=== PATIENT | male | born 1935 | race Caucasian/White ===

== ENCOUNTER 2021-08-27 15:12 | Inpatient (IN) | payer OTHER, BC ==
[2021-08-27 15:25] VITALS: BMI 20.3
[2021-08-27] MEDS ORDERED: VANCOMYCIN 1 GM in D5W (PRE-DOCKED) 1,000 MG/250 ML IVPB ONE (16:43)
[2021-08-27] MEDS ORDERED: PIPERACILLIN/TAZOB 4.5 GM 4.5 GM in DEXTROSE 5%-WATER 100 ML IVPB ONE (16:43)
[2021-08-27] MEDS ORDERED: morphine CARPU-JECT 4 MG/1 ML DISP.SYRIN IVPUSH ONE (16:44)
[2021-08-27] MEDS ORDERED: PIPERACILLIN/TAZOB 4.5 GM 4.5 GM/100 ML BAG IVPB ONE (17:00)
[2021-08-27] MEDS ORDERED: morphine SULFATE 4 MG/ML VIAL ONE (17:00)
[2021-08-27] MEDS ORDERED: VANCOMYCIN 1 GRAM (PRE-DOCKED) 1,000 MG/250 ML BAG IVPB ONE (17:01)
[2021-08-27 17:33] LABS: BASO % 0.2 % (0-2.0); EOS % 0.2 % (0-4.5); HEMATOCRIT 38.3 % (35.4-49); HEMOGLOBIN 12.7 GM/dL (11.7-16.9); LYMPH % 4.5 % (8-40); MCHC 33.2 g/dl (32.0-35.9); MEAN CELL VOLUME 96.2 fl (80-96); MEAN PLT VOLUME 9.4 fl (7.5-11.1); MONO % 6.7 % (3.8-10.2); NEUT % 88.4 % (42.8-82.8); PLATELET COUNT 223 10^3/uL (134-434); RBC 3.98 M/mm3 (4.00-5.60); RDW 12.5 % (11.9-15.9); WHITE BLOOD COUNT 11.6 K/mm3 (4.0-10.0)
[2021-08-27 17:36] LABS: INR 1.26 (0.83-1.09); PROTHROMBIN TIME (PATIENT) 14.8 SEC (9.7-13.0)
[2021-08-27 17:39] LABS: ACTIVATED PTT 24.4 SECONDS (25.2-36.5)
[2021-08-27 17:50] LABS: CALCIUM 8.9 mg/dL (8.5-10.1)
[2021-08-27 17:51] LABS: ALBUMIN 2.5 g/dl (3.4-5.0); BLOOD UREA NITROGEN 69.6 mg/dL (7-18)
[2021-08-27 17:54] LABS: CREATININE 3.1 mg/dL (0.55-1.3)
[2021-08-27 17:55] LABS: BILIRUBIN,TOTAL 1.2 mg/dL (0.2-1); TOT PROT 6.9 g/dl (6.4-8.2)
[2021-08-27] MEDS ORDERED: VANCOMYCIN 1,000 MG VIAL (RESTRICTED TO ID ONLY) ONE (18:44)
[2021-08-27] MEDS ORDERED: ONDANSETRON 4 MG/2 ML VIAL IVPUSH PRN ×2 (19:18→21:09)
[2021-08-27] MEDS ORDERED: SODIUM CHLORIDE 1,000 ML IV SCH (19:30)
[2021-08-27] MEDS ORDERED: MIDAZOLAM HCL 2 MG/2 ML SINGLE DOSE VIAL ONE (19:45)
[2021-08-27] MEDS ORDERED: PROPOFOL 20 ML ONE ×2 (19:46)
[2021-08-27] MEDS ORDERED: ONDANSETRON 4 MG/2 ML VIAL ONE (19:46)
[2021-08-27] MEDS ORDERED: LIDOCAINE HCL 2% (20ML MULTI-DOSE VIAL) ONE (19:58)
[2021-08-27] MEDS ORDERED: BUPIVACAINE HCL/PF 0.5% (5MG/ML) 10 ML VIAL ONE (20:46)
[2021-08-27] MEDS: Insulin (LOG) Aspart 100 UNITS/ML VIAL SQ ONE (21:30)
[2021-08-27] MEDS: INSULIN SLIDING SCALE (NOVOLOG) 1 VIAL SQ SCH (21:30)
[2021-08-28] MEDS: ACETAMINOPHEN 1000 MG/100 ML VIAL IVPB PRN ×2 (01:23→08:47)
[2021-08-28] MEDS: SODIUM CHLORIDE 1,000 ML IV SCH ×2 (01:29→05:14)
[2021-08-28] MEDS: INSULIN SLIDING SCALE (NOVOLOG) 1 VIAL SQ SCH ×4 (06:39→22:35)
[2021-08-28] MEDS ORDERED: DEXTROSE 5%-WATER - 50 ML IVPB ONE ×3 (07:49→16:50)
[2021-08-28] MEDS ORDERED: PIPERACILLIN/TAZOBACTAM 2.25 GM VIAL IVPB ONE ×3 (07:49→16:50)
[2021-08-28 08:26] LABS: BASO % 0.4 % (0-2.0); EOS % 1.7 % (0-4.5); HEMATOCRIT 35.2 % (35.4-49); LYMPH % 11.3 % (8-40); MCH 33.2 pg (25.7-33.7); MEAN CELL VOLUME 97.6 fl (80-96); MEAN PLT VOLUME 9.3 fl (7.5-11.1); MONO % 8.5 % (3.8-10.2); NEUT % 78.1 % (42.8-82.8); PLATELET COUNT 209 10^3/uL (134-434); RDW 12.7 % (11.9-15.9); WHITE BLOOD COUNT 7.9 K/mm3 (4.0-10.0)
[2021-08-28 08:46] LABS: CALCIUM 8.2 mg/dL (8.5-10.1); MAGNESIUM 2.3 mg/dL (1.8-2.4)
[2021-08-28] MEDS: PIPERACILLIN/TAZOB 2.25 GM 2.25 GM in DEXTROSE 5%-WATER - 50 ML IVPB SCH ×3 (08:47→17:08)
[2021-08-28 08:49] LABS: CREATININE 2.8 mg/dL (0.55-1.3); PHOSPHOROUS 4.1 mg/dL (2.5-4.9)
[2021-08-28 08:50] LABS: BILIRUBIN,TOTAL 1.2 mg/dL (0.2-1)
[2021-08-28 08:51] LABS: TOT PROT 5.9 g/dl (6.4-8.2)
[2021-08-28] MEDS: ASPIRIN 81 MG CHEWABLE TABLETS PO SCH (09:09)
[2021-08-28] MEDS: metoPROLOL SUCCINATE 25 MG TAB.SR.24H (FP) PO SCH (09:09)
[2021-08-28] MEDS ORDERED: INSULIN (NOVOLOG) ASPART 100 UNITS/ML 10ML VIAL ONE (10:46)
[2021-08-28] MEDS: oxyCODONE HCL 5 MG TABLET PO PRN ×2 (11:41→17:49)
[2021-08-28] MEDS: Insulin (LOG) Aspart 100 UNITS/ML VIAL SQ ONE (23:25)
[2021-08-29] MEDS ORDERED: PIPERACILLIN/TAZOBACTAM 2.25 GM VIAL IVPB ONE ×4 (00:46→21:01)
[2021-08-29] MEDS ORDERED: DEXTROSE 5%-WATER - 50 ML IVPB ONE ×4 (00:47→21:01)
[2021-08-29] MEDS: oxyCODONE HCL 5 MG TABLET PO PRN ×3 (00:51→15:56)
[2021-08-29] MEDS: SODIUM CHLORIDE 1,000 ML IV SCH ×3 (00:57→15:57)
[2021-08-29] MEDS: PIPERACILLIN/TAZOB 2.25 GM 2.25 GM in DEXTROSE 5%-WATER - 50 ML IVPB SCH ×4 (01:00→21:42)
[2021-08-29] MEDS: INSULIN SLIDING SCALE (NOVOLOG) 1 VIAL SQ SCH ×4 (06:08→21:42)
[2021-08-29 08:48] LABS: HEMATOCRIT 31.6 % (35.4-49); HEMOGLOBIN 10.8 GM/dL (11.7-16.9); MCH 33.6 pg (25.7-33.7); MCHC 34.3 g/dl (32.0-35.9); MEAN CELL VOLUME 97.9 fl (80-96); MEAN PLT VOLUME 9.2 fl (7.5-11.1); PLATELET COUNT 197 10^3/uL (134-434); RBC 3.23 M/mm3 (4.00-5.60); RDW 12.7 % (11.9-15.9); WHITE BLOOD COUNT 8.5 K/mm3 (4.0-10.0)
[2021-08-29] MEDS: ASPIRIN 81 MG CHEWABLE TABLETS PO SCH (09:13)
[2021-08-29] MEDS: metoPROLOL SUCCINATE 25 MG TAB.SR.24H (FP) PO SCH (09:13)
[2021-08-29 09:29] LABS: ALBUMIN 1.8 g/dl (3.4-5.0); BLOOD UREA NITROGEN 47.5 mg/dL (7-18); CALCIUM 8.1 mg/dL (8.5-10.1)
[2021-08-29 09:32] LABS: CREATININE 2.6 mg/dL (0.55-1.3); URIC ACID 3.2 mg/dL (2.6-7.2)
[2021-08-29 09:33] LABS: BILIRUBIN,TOTAL 1.2 mg/dL (0.2-1)
[2021-08-29 09:34] LABS: TOT PROT 5.4 g/dl (6.4-8.2)
[2021-08-29] MEDS: ENOXAPARIN NA (PORCINE) 30 MG/0.3 ML DISP.SYRIN SQ SCH (15:58)
[2021-08-30] MEDS ORDERED: DEXTROSE 5%-WATER - 50 ML IVPB ONE ×4 (02:44→21:21)
[2021-08-30] MEDS ORDERED: PIPERACILLIN/TAZOBACTAM 2.25 GM VIAL IVPB ONE ×4 (02:44→21:21)
[2021-08-30] MEDS: PIPERACILLIN/TAZOB 2.25 GM 2.25 GM in DEXTROSE 5%-WATER - 50 ML IVPB SCH ×4 (03:24→22:08)
[2021-08-30] MEDS: SODIUM CHLORIDE 1,000 ML IV SCH ×2 (03:24→15:00)
[2021-08-30] MEDS: oxyCODONE HCL 5 MG TABLET PO PRN ×3 (04:32→18:32)
[2021-08-30] MEDS: INSULIN SLIDING SCALE (NOVOLOG) 1 VIAL SQ SCH ×4 (06:00→22:12)
[2021-08-30 08:59] LABS: BASO % 0.8 % (0-2.0); EOS % 1.9 % (0-4.5); HEMATOCRIT 31.1 % (35.4-49); HEMOGLOBIN 10.6 GM/dL (11.7-16.9); LYMPH % 10.9 % (8-40); MCH 32.9 pg (25.7-33.7); MEAN CELL VOLUME 96.8 fl (80-96); MONO % 11.7 % (3.8-10.2); NEUT % 74.7 % (42.8-82.8); PLATELET COUNT 199 10^3/uL (134-434); RBC 3.21 M/mm3 (4.00-5.60); RDW 12.4 % (11.9-15.9); WHITE BLOOD COUNT 7.4 K/mm3 (4.0-10.0)
[2021-08-30 09:28] LABS: CALCIUM 7.8 mg/dL (8.5-10.1)
[2021-08-30 09:29] LABS: ALBUMIN 1.6 g/dl (3.4-5.0); BLOOD UREA NITROGEN 38.5 mg/dL (7-18)
[2021-08-30 09:32] LABS: CREATININE 2.5 mg/dL (0.55-1.3)
[2021-08-30 09:33] LABS: BILIRUBIN,TOTAL 0.8 mg/dL (0.2-1); TOT PROT 5.1 g/dl (6.4-8.2)
[2021-08-30] MEDS: metoPROLOL SUCCINATE 25 MG TAB.SR.24H (FP) PO SCH (09:33)
[2021-08-30] MEDS: ENOXAPARIN NA (PORCINE) 30 MG/0.3 ML DISP.SYRIN SQ SCH (09:33)
[2021-08-30] MEDS: ASPIRIN 81 MG CHEWABLE TABLETS PO SCH (09:33)
[2021-08-30] MEDS: INSULIN (LEVEMIR) 100 UNITS/ML UNITS SQ SCH (22:08)
[2021-08-31] MEDS ORDERED: DEXTROSE 5%-WATER - 50 ML IVPB ONE ×4 (01:48→20:46)
[2021-08-31] MEDS ORDERED: PIPERACILLIN/TAZOBACTAM 2.25 GM VIAL IVPB ONE ×4 (01:48→20:46)
[2021-08-31] MEDS: oxyCODONE HCL 5 MG TABLET PO PRN ×3 (02:33→17:32)
[2021-08-31] MEDS: PIPERACILLIN/TAZOB 2.25 GM 2.25 GM in DEXTROSE 5%-WATER - 50 ML IVPB SCH ×4 (02:34→21:58)
[2021-08-31] MEDS: SODIUM CHLORIDE 1,000 ML IV SCH ×2 (04:35→17:40)
[2021-08-31] MEDS: INSULIN SLIDING SCALE (NOVOLOG) 1 VIAL SQ SCH ×4 (06:18→21:55)
[2021-08-31 08:25] LABS: BASO % 0.7 % (0-2.0); HEMATOCRIT 29.7 % (35.4-49); HEMOGLOBIN 10.2 GM/dL (11.7-16.9); LYMPH % 11.3 % (8-40); MCH 32.8 pg (25.7-33.7); MCHC 34.4 g/dl (32.0-35.9); MEAN CELL VOLUME 95.4 fl (80-96); MEAN PLT VOLUME 8.4 fl (7.5-11.1); MONO % 11.3 % (3.8-10.2); NEUT % 73.7 % (42.8-82.8); PLATELET COUNT 200 10^3/uL (134-434); RBC 3.12 M/mm3 (4.00-5.60); RDW 12.2 % (11.9-15.9); WHITE BLOOD COUNT 7.7 K/mm3 (4.0-10.0)
[2021-08-31 09:20] LABS: ALBUMIN 1.6 g/dl (3.4-5.0); CALCIUM 7.9 mg/dL (8.5-10.1)
[2021-08-31 09:23] LABS: CREATININE 2.2 mg/dL (0.55-1.3)
[2021-08-31 09:25] LABS: BILIRUBIN,TOTAL 0.8 mg/dL (0.2-1); TOT PROT 5.1 g/dl (6.4-8.2)
[2021-08-31] MEDS: metoPROLOL SUCCINATE 25 MG TAB.SR.24H (FP) PO SCH (10:20)
[2021-08-31] MEDS: ENOXAPARIN NA (PORCINE) 30 MG/0.3 ML DISP.SYRIN SQ SCH (10:21)
[2021-08-31] MEDS: ASPIRIN 81 MG CHEWABLE TABLETS PO SCH (10:21)
[2021-08-31] MEDS ORDERED: PT OWN MED DRAWER 7, Y5N ONE (17:18)
[2021-08-31] MEDS: INSULIN (LEVEMIR) 100 UNITS/ML UNITS SQ SCH (21:57)
[2021-09-01] MEDS ORDERED: PIPERACILLIN/TAZOBACTAM 2.25 GM VIAL IVPB ONE ×4 (03:09→19:59)
[2021-09-01] MEDS ORDERED: DEXTROSE 5%-WATER - 50 ML IVPB ONE ×4 (03:10→19:59)
[2021-09-01] MEDS: PIPERACILLIN/TAZOB 2.25 GM 2.25 GM in DEXTROSE 5%-WATER - 50 ML IVPB SCH ×4 (03:27→20:49)
[2021-09-01] MEDS: SODIUM CHLORIDE 1,000 ML IV SCH ×2 (05:40→15:57)
[2021-09-01] MEDS: INSULIN SLIDING SCALE (NOVOLOG) 1 VIAL SQ SCH ×4 (06:05→21:00)
[2021-09-01 08:18] LABS: BASO % 0.5 % (0-2.0); EOS % 1.2 % (0-4.5); HEMATOCRIT 30.6 % (35.4-49); HEMOGLOBIN 10.4 GM/dL (11.7-16.9); LYMPH % 9.6 % (8-40); MCH 32.4 pg (25.7-33.7); MEAN CELL VOLUME 95.4 fl (80-96); MEAN PLT VOLUME 8.6 fl (7.5-11.1); MONO % 10.8 % (3.8-10.2); NEUT % 77.9 % (42.8-82.8); PLATELET COUNT 236 10^3/uL (134-434); RBC 3.21 M/mm3 (4.00-5.60); RDW 12.6 % (11.9-15.9); WHITE BLOOD COUNT 8.7 K/mm3 (4.0-10.0)
[2021-09-01 08:44] LABS: CALCIUM 7.8 mg/dL (8.5-10.1)
[2021-09-01 08:45] LABS: ALBUMIN 1.7 g/dl (3.4-5.0); BLOOD UREA NITROGEN 23.2 mg/dL (7-18)
[2021-09-01 08:47] LABS: TOT PROT 5.1 g/dl (6.4-8.2)
[2021-09-01 08:51] LABS: BILIRUBIN,TOTAL 1.5 mg/dL (0.2-1)
[2021-09-01] MEDS: ENOXAPARIN NA (PORCINE) 30 MG/0.3 ML DISP.SYRIN SQ SCH (10:48)
[2021-09-01] MEDS: ASPIRIN 81 MG CHEWABLE TABLETS PO SCH (10:48)
[2021-09-01] MEDS: metoPROLOL SUCCINATE 25 MG TAB.SR.24H (FP) PO SCH (10:48)
[2021-09-01] MEDS: oxyCODONE HCL 5 MG TABLET PO PRN ×3 (11:29→23:46)
[2021-09-01] MEDS: INSULIN (LEVEMIR) 100 UNITS/ML UNITS SQ SCH (21:00)
[2021-09-01] MEDS ORDERED: ACETAMINOPHEN 1000 MG/100 ML VIAL IVPB ONE (21:54)
[2021-09-02] MEDS ORDERED: PIPERACILLIN/TAZOBACTAM 2.25 GM VIAL IVPB ONE ×2 (03:28→08:50)
[2021-09-02] MEDS ORDERED: DEXTROSE 5%-WATER - 50 ML IVPB ONE ×2 (03:29→08:50)
[2021-09-02] MEDS: PIPERACILLIN/TAZOB 2.25 GM 2.25 GM in DEXTROSE 5%-WATER - 50 ML IVPB SCH ×2 (03:30→09:25)
[2021-09-02] MEDS: oxyCODONE HCL 5 MG TABLET PO PRN ×3 (05:50→18:24)
[2021-09-02] MEDS: INSULIN SLIDING SCALE (NOVOLOG) 1 VIAL SQ SCH ×4 (06:07→21:59)
[2021-09-02] MEDS: ASPIRIN 81 MG CHEWABLE TABLETS PO SCH (09:25)
[2021-09-02] MEDS: metoPROLOL SUCCINATE 25 MG TAB.SR.24H (FP) PO SCH (09:25)
[2021-09-02] MEDS: ENOXAPARIN NA (PORCINE) 30 MG/0.3 ML DISP.SYRIN SQ SCH (09:25)
[2021-09-02] MEDS: LACTOBACILLUS ACIDOPHILUS 1 TABLET PO SCH (12:26)
[2021-09-02] MEDS: ERTAPENEM SODIUM 0.5 GM in SODIUM CHLORIDE 50 ML IVPB SCH (15:12)
[2021-09-02] MEDS: AMOXICILLIN 500 MG CAPSULE (FP) PO SCH (21:55)
[2021-09-02] MEDS: INSULIN (LEVEMIR) 100 UNITS/ML UNITS SQ SCH (21:59)
[2021-09-03] MEDS: oxyCODONE HCL 5 MG TABLET PO PRN ×3 (01:45→12:59)
[2021-09-03] MEDS: INSULIN SLIDING SCALE (NOVOLOG) 1 VIAL SQ SCH ×3 (06:53→16:58)
[2021-09-03] MEDS: ENOXAPARIN NA (PORCINE) 30 MG/0.3 ML DISP.SYRIN SQ SCH (09:51)
[2021-09-03] MEDS: metoPROLOL SUCCINATE 25 MG TAB.SR.24H (FP) PO SCH (09:52)
[2021-09-03] MEDS: LACTOBACILLUS ACIDOPHILUS 1 TABLET PO SCH (09:52)
[2021-09-03] MEDS: ASPIRIN 81 MG CHEWABLE TABLETS PO SCH (09:52)
[2021-09-03] MEDS: AMOXICILLIN 500 MG CAPSULE (FP) PO SCH (09:52)
[2021-09-03] MEDS: ERTAPENEM SODIUM 0.5 GM in SODIUM CHLORIDE 50 ML IVPB SCH (12:12)
[2021-09-03 14:08] VITALS: BP 135/70; PULSE 84; TEMP 97.6
[2021-09-04] MEDS ORDERED: AMINO ACIDS/PROTEIN HYDROLYS 30 ML LIQUID.PKT PO SCH (08:00)
[2021-09-04] MEDS ORDERED: MULTIVITAMINS (DAILY MVI) TABLET (FP) PO SCH (10:00)
== END 2021-09-03 18:39 | disposition home health service (06) | DRG 629 ==
LOC: JER 15:12 → JERBED 16:46 → J7W 08-28 00:59
PROVIDERS: ADMIT Family Medicine; ATTEND Family Medicine
PROC: 0J9Q0ZX Drainage of Right Foot Subcutaneous Tissue and Fascia, Open Approach, Diagnostic (ICD-10-PCS; 2021-08-27)
PROC: 0QBN3ZX Excision of Right Metatarsal, Percutaneous Approach, Diagnostic (ICD-10-PCS; principal; 2021-08-27 19:30)
PROC: 05HB33Z Insertion of Infusion Device into Right Basilic Vein, Percutaneous Approach (ICD-10-PCS; 2021-09-03)
PROC: B51MZZA Fluoroscopy of Right Upper Extremity Veins, Guidance (ICD-10-PCS; 2021-09-03)
DX: E11.621 Type 2 diabetes mellitus with foot ulcer (principal); L03.115 Cellulitis of right lower limb; M86.9 Osteomyelitis, unspecified; N17.9 Acute kidney failure, unspecified; L97.519 Non-pressure chronic ulcer of other part of right foot with unspecified severity; I25.10 Atherosclerotic heart disease of native coronary artery without angina pectoris; I12.9 Hypertensive chronic kidney disease with stage 1 through stage 4 chronic kidney disease, or unspecified chronic kidney disease; N18.9 Chronic kidney disease, unspecified; Z98.61 Coronary angioplasty status; E78.5 Hyperlipidemia, unspecified
CPT/HCPCS: 11042; 36415; 36569; 71045-TC-FY; 73630-TC-RT-FY; 76775-TC; 76856-TC; 77001-TC-FY; 80048; 80053; 80061; 82962; 83036; 83735; 84100; 84443; 84550; 85025; 85027; 85610; 85730; 86140; 86850; 86900; 86901; 87040; 87070; 87075; 87186; 87205; 93922; 93925-TC; 93971-TC; 94760; 97116-GP; 97162-GP; 99285-25; C1751; C9803; G0480; J0131; U0003; U0005

== ENCOUNTER 2021-09-10 15:40 | Inpatient (IN) | payer OTHER, BC ==
[2021-09-10 18:17] LABS: BASO % 0.5 % (0-2.0); EOS % 1.2 % (0-4.5); HEMATOCRIT 21.2 % (35.4-49); HEMOGLOBIN 7.2 GM/dL (11.7-16.9); LYMPH % 14.5 % (8-40); MCH 33.5 pg (25.7-33.7); MCHC 33.8 g/dl (32.0-35.9); MEAN PLT VOLUME 7.7 fl (7.5-11.1); MONO % 7.5 % (3.8-10.2); NEUT % 76.3 % (42.8-82.8); PLATELET COUNT 239 10^3/uL (134-434); RBC 2.14 M/mm3 (4.00-5.60); RDW 13.6 % (11.9-15.9); WHITE BLOOD COUNT 8.2 K/mm3 (4.0-10.0)
[2021-09-10 18:46] LABS: CALCIUM 8.5 mg/dL (8.5-10.1)
[2021-09-10 18:49] LABS: CREATININE 2.3 mg/dL (0.55-1.3)
[2021-09-10 18:50] LABS: BILIRUBIN,TOTAL 0.4 mg/dL (0.2-1); TOT PROT 5.8 g/dl (6.4-8.2)
[2021-09-10 18:54] LABS: ALBUMIN 2.4 g/dl (3.4-5.0); BLOOD UREA NITROGEN 62.5 mg/dL (7-18)
[2021-09-10] MEDS ORDERED: INSULIN REGULAR HUMAN 100 UNITS/ML *VIAL SQ ONE (18:58)
[2021-09-10] MEDS ORDERED: AMOXICILLIN 500 MG CAPSULE (FP) PO ONE (19:12)
[2021-09-10] MEDS ORDERED: ERTAPENEM SODIUM 0.5 GM in SODIUM CHLORIDE 50 ML IVPB ONE (19:12)
[2021-09-10] MEDS ORDERED: AMOXICILLIN 500 MG CAPSULE (FP) ONE (19:49)
[2021-09-10] MEDS ORDERED: POLYETHYLENE GLYCOL (HEALTHYLAX) 3350 17 GM PACKET PO PRN (19:58)
[2021-09-10] MEDS ORDERED: ACETAMINOPHEN 325 MG TABLET (FP) PO PRN ×2 (19:58→20:42)
[2021-09-10] MEDS ORDERED: oxyCODONE HCL 5 MG TABLET PO PRN (20:42)
[2021-09-10 21:52] LABS: HEMATOCRIT 20.1 % (35.4-49); LYMPH % 14.5 % (8-40); MCH 33.3 pg (25.7-33.7); MCHC 33.3 g/dl (32.0-35.9); MEAN CELL VOLUME 99.9 fl (80-96); MEAN PLT VOLUME 8.4 fl (7.5-11.1); MONO % 8.5 % (3.8-10.2); PLATELET COUNT 206 10^3/uL (134-434); RBC 2.01 M/mm3 (4.00-5.60); RDW 13.7 % (11.9-15.9); WHITE BLOOD COUNT 6.3 K/mm3 (4.0-10.0)
[2021-09-10 21:57] LABS: HEMOGLOBIN 6.7 GM/dL (11.7-16.9)
[2021-09-10 22:02] LABS: INR 1.33 (0.83-1.09); PROTHROMBIN TIME (PATIENT) 15.6 SEC (9.7-13.0)
[2021-09-10 22:04] LABS: ACTIVATED PTT 24.9 SECONDS (25.2-36.5)
[2021-09-10] MEDS: INSULIN SLIDING SCALE (NOVOLOG) 1 VIAL SQ SCH (22:52)
[2021-09-11 03:24] VITALS: BMI 17.0
[2021-09-11] MEDS: INSULIN SLIDING SCALE (NOVOLOG) 1 VIAL SQ SCH ×4 (06:17→22:25)
[2021-09-11] MEDS: metoPROLOL SUCCINATE 25 MG TAB.SR.24H (FP) PO SCH ×2 (09:12→09:21)
[2021-09-11 09:32] LABS: BASO % 0.6 % (0-2.0); EOS % 2.7 % (0-4.5); HEMATOCRIT 26.4 % (35.4-49); HEMOGLOBIN 9.2 GM/dL (11.7-16.9); LYMPH % 15.9 % (8-40); MCH 33.4 pg (25.7-33.7); MCHC 34.7 g/dl (32.0-35.9); MEAN CELL VOLUME 96.4 fl (80-96); MEAN PLT VOLUME 8.2 fl (7.5-11.1); MONO % 8.1 % (3.8-10.2); NEUT % 72.7 % (42.8-82.8); PLATELET COUNT 237 10^3/uL (134-434); RBC 2.74 M/mm3 (4.00-5.60); RDW 16.9 % (11.9-15.9); WHITE BLOOD COUNT 7.5 K/mm3 (4.0-10.0)
[2021-09-11 09:56] LABS: CALCIUM 8.4 mg/dL (8.5-10.1)
[2021-09-11 09:58] LABS: BLOOD UREA NITROGEN 51.2 mg/dL (7-18); MAGNESIUM 2.4 mg/dL (1.8-2.4)
[2021-09-11 10:00] LABS: CREATININE 2.2 mg/dL (0.55-1.3); PHOSPHOROUS 3.2 mg/dL (2.5-4.9)
[2021-09-11] MEDS ORDERED: AMOXICILLIN 500 MG CAPSULE (FP) PO SCH (10:00)
[2021-09-11] MEDS ORDERED: PANTOPRAZOLE 40 MG TABLET PO SCH ×2 (10:00)
[2021-09-11] MEDS ORDERED: ONDANSETRON 4 MG/2 ML VIAL IVPB PRN (14:18)
[2021-09-11] MEDS: POLYETHYLENE GLYCOL (HEALTHYLAX) 3350 17 GM PACKET PO SCH ×2 (14:41→22:24)
[2021-09-11] MEDS ORDERED: INSULIN (NOVOLOG) ASPART 100 UNITS/ML 10ML VIAL ONE (21:12)
[2021-09-11] MEDS ORDERED: PANTOPRAZOLE SODIUM 40 MG VIAL IVPUSH SCH (22:00)
[2021-09-11] MEDS: ERTAPENEM SODIUM 0.5 GM in SODIUM CHLORIDE 50 ML IVPB SCH (22:23)
[2021-09-12] MEDS: INSULIN SLIDING SCALE (NOVOLOG) 1 VIAL SQ SCH ×4 (06:09→22:33)
[2021-09-12 08:29] LABS: BASO % 0.9 % (0-2.0); EOS % 4.9 % (0-4.5); HEMATOCRIT 29.4 % (35.4-49); LYMPH % 14.7 % (8-40); MCH 32.3 pg (25.7-33.7); MEAN CELL VOLUME 94.9 fl (80-96); MEAN PLT VOLUME 8.4 fl (7.5-11.1); MONO % 9.5 % (3.8-10.2); PLATELET COUNT 204 10^3/uL (134-434); RDW 18.5 % (11.9-15.9); WHITE BLOOD COUNT 6.5 K/mm3 (4.0-10.0)
[2021-09-12 08:51] LABS: ALBUMIN 2.1 g/dl (3.4-5.0); BLOOD UREA NITROGEN 33.9 mg/dL (7-18); CALCIUM 8.2 mg/dL (8.5-10.1)
[2021-09-12 08:53] LABS: CREATININE 1.9 mg/dL (0.55-1.3); URIC ACID 5.9 mg/dL (2.6-7.2)
[2021-09-12 08:54] LABS: PHOSPHOROUS 2.5 mg/dL (2.5-4.9)
[2021-09-12 08:55] LABS: TOT PROT 5.3 g/dl (6.4-8.2)
[2021-09-12] MEDS: metoPROLOL SUCCINATE 25 MG TAB.SR.24H (FP) PO SCH (09:26)
[2021-09-12] MEDS: PANTOPRAZOLE 40 MG TABLET PO SCH (09:26)
[2021-09-12] MEDS: AMOXICILLIN 500 MG CAPSULE (FP) PO SCH ×2 (09:27→23:33)
[2021-09-12] MEDS: POLYETHYLENE GLYCOL (HEALTHYLAX) 3350 17 GM PACKET PO SCH ×3 (09:27→22:35)
[2021-09-12] MEDS ORDERED: PT OWN MED DRAWER 7, Y5N ONE (21:41)
[2021-09-12] MEDS: ERTAPENEM SODIUM 0.5 GM in SODIUM CHLORIDE 50 ML IVPB SCH (22:05)
[2021-09-13] MEDS: INSULIN SLIDING SCALE (NOVOLOG) 1 VIAL SQ SCH ×2 (06:24→12:10)
[2021-09-13] MEDS ORDERED: PT OWN MED DRAWER 7, Y5N ONE (10:04)
[2021-09-13] MEDS: metoPROLOL SUCCINATE 25 MG TAB.SR.24H (FP) PO SCH (10:08)
[2021-09-13] MEDS: PANTOPRAZOLE 40 MG TABLET PO SCH (10:08)
[2021-09-13] MEDS: POLYETHYLENE GLYCOL (HEALTHYLAX) 3350 17 GM PACKET PO SCH (10:08)
[2021-09-13] MEDS: AMOXICILLIN 500 MG CAPSULE (FP) PO SCH (10:08)
[2021-09-13] MEDS ORDERED: INSULIN (NOVOLOG) ASPART 100 UNITS/ML 10ML VIAL ONE ×2 (12:13→12:33)
[2021-09-13 14:28] VITALS: BP 122/65; PULSE 89; TEMP 97.6
== END 2021-09-13 16:21 | disposition home or self-care (01) | DRG 638 ==
LOC: JER 15:40 → JERBED 19:58 → J7W 09-11 02:48
PROVIDERS: ATTEND Family Medicine
DX: E11.69 Type 2 diabetes mellitus with other specified complication (principal); L97.518 Non-pressure chronic ulcer of other part of right foot with other specified severity; K92.2 Gastrointestinal hemorrhage, unspecified; Z68.1 Body mass index [BMI] 19.9 or less, adult; M86.9 Osteomyelitis, unspecified; I25.10 Atherosclerotic heart disease of native coronary artery without angina pectoris; N18.4 Chronic kidney disease, stage 4 (severe); E11.621 Type 2 diabetes mellitus with foot ulcer; E78.00 Pure hypercholesterolemia, unspecified; J44.9 Chronic obstructive pulmonary disease, unspecified; L08.89 Other specified local infections of the skin and subcutaneous tissue; K59.00 Constipation, unspecified; I12.9 Hypertensive chronic kidney disease with stage 1 through stage 4 chronic kidney disease, or unspecified chronic kidney disease; R63.4 Abnormal weight loss; E11.22 Type 2 diabetes mellitus with diabetic chronic kidney disease; E88.2 Lipomatosis, not elsewhere classified; D64.9 Anemia, unspecified; Z95.5 Presence of coronary angioplasty implant and graft
CPT/HCPCS: 11042; 36415; 36430; 36511; 73630-TC-RT-FY; 80048; 80053; 82272; 82728; 82962; 83540; 83550; 83735; 84100; 84550; 85025; 85610; 85730; 86140; 86850; 86900; 86901; 86922; 87040; 93005; 93010; 99285-25; A6210; C9803; P9038; P9058; U0003; U0005